=== PATIENT | female | born 1980 | race Caucasian/White ===

== ENCOUNTER 2018-08-10 02:50 | Emergency (ER) | payer OTHER ==
[~2018-08-10] VITALS: Ht 152.4 cm; Wt 90.0 kg
[~2018-08-10 02:50] MED LIST: AZIT250T PO
[2018-08-10] MEDS ORDERED: normal saline 1000ML IV soln IVB ONE (03:00)
--- NOTE | 2018-08-10 03:17 | NUR ---
poison control contacted: for trazodone - watch for sedation, N\V, bradycardia and hypotension and even seizures. For unk muscle relaxers - watch for sedation, seizures. Treat with fluids and if necessary levophed and atropine. Order regular labs plus ASA, APAP, ETOH, Utox.
[2018-08-10 03:20] LABS: URINE HCG NEGATIVE (NEG)
[2018-08-10 03:22] LABS: BASOPHILS % (AUTO) 0.4 % (0-1); EOSINOPHILS # (AUTO) 0.1 X10'3 (0-0.9); EOSINOPHILS % (AUTO) 1.3 % (0-6); HEMATOCRIT 34.6 % (35.0-45.0); HEMOGLOBIN 11.7 g/dl (12.0-16.0); LYMPHOCYTES # (AUTO) 1.6 X10'3 (1.1-4.8); LYMPHOCYTES % (AUTO) 15.9 % (21-51); MEAN CORPUSCULAR HGB CONC 33.8 % (33.0-36.5); MEAN CORPUSCULAR VOLUME 82.7 FL (78-98); MEAN PLATELET VOLUME 6.9 FL (7.4-10.4); MONOCYTES # (AUTO) 0.5 X10'3 (0-0.9); MONOCYTES % (AUTO) 5.3 % (2-12); NEUTROPHILS # (AUTO) 7.8 X10'3 (1.8-7.7); NEUTROPHILS % (AUTO) 77.1 % (42-75); PLATELET COUNT 415 X10'3 (140-440); RED BLOOD COUNT 4.19 X10'6 (4.20-5.60); RED CELL DISTRIBUTION WIDTH 15.5 % (11.5-14.5); WHITE BLOOD COUNT 10.1 X10'3 (4.5-11.0)
[2018-08-10 03:27] LABS: URINE AMPHETAMINE SCREEN NEGATIVE (Neg); URINE BARBITUATE SCREEN NEGATIVE (Neg); URINE BENZODIAZEPINES SCREEN NEGATIVE (Neg); URINE CANNABINOID SCREEN NEGATIVE (Neg); URINE COCAINE SCREEN NEGATIVE (Neg); URINE METHADONE SCREEN NEGATIVE (Neg); URINE OPIATE SCREEN NEGATIVE (Neg); URINE PHENCYCLIDINE SCREEN NEGATIVE (Neg)
[2018-08-10 03:34] LABS: ACETAMINOPHEN < 2.0 UG/ML (10-30); ALANINE AMINOTRANSFERASE 20 U/L (12-78); ALBUMIN 3.3 G/DL (3.4-5.0); ALBUMIN/GLOBULIN RATIO 0.9 (1.1-1.5); ALKALINE PHOSPHATASE 67 IU/L (46-116); ANION GAP 14 (8-16); ASPARTATE AMINO TRANSFERASE 11 U/L (10-37); BILIRUBIN,TOTAL 0.2 MG/DL (0.1-1.0); BLOOD UREA NITROGEN 9 MG/DL (7-18); BUN/CREATININE RATIO 11.7 (6.6-38.0); CALCIUM 7.9 MG/DL (8.5-10.1); CHLORIDE 101 MMOL/L (99-107); CREATININE 0.77 MG/DL (0.40-0.90); ETHANOL < 0.010 GM/DL (0.0-0.010); GLUCOSE 128 MG/DL (70-104); POTASSIUM 3.2 MMOL/L (3.5-5.1); SODIUM 138 MMOL/L (135-145); TOTAL CARBON DIOXIDE 23.2 MMOL/L (24-32); eGFR 83 ML/MIN
[2018-08-10] MEDS: potassium Cl 20 mEq SR tablet PO STA ×2 (05:45→10:54)
--- NOTE | 2018-08-10 06:30 | NUR ---
PT CURRENTLY RESTING QUIETLY, NO SIGNS OF DISTRESS NOTED. WILL GIVE PO POTASSIUM WHEN PT WAKES
--- NOTE | 2018-08-10 07:30 | NUR ---
PT STILL SLEEPING, NO SIGNS OF DISTRESS NOTED. WILL CONT TO MONITOR
--- NOTE | 2018-08-10 08:20 | NUR ---
PT SLEEPING, SHE ROLLED OVER TO HER LEFT SIDE, NO SIGNS OF DISTRESS NOTED
--- NOTE | 2018-08-10 10:21 | NUR ---
ASHLEY FROM POISON CONTROL CALLED TO F/U WITH PT. LAB VALUES GIVEN. PT CONT TO SLEEP. WILL CONT TO MONITOR
--- NOTE | 2018-08-10 11:23 | NUR ---
assited head to toe clean up: patient incontinent of urine. patient responsive to sternal rub, pupils 4 mm sluggish but reactive, patient with gag reflex when orally suctioned with yankauer when patient was flat while turning patient was foaming at the mouth: dr cesar informed patient on ekg, bp spo2 monitoring
[2018-08-10] MEDS ORDERED: DIVA-74 PO (12:17)
[2018-08-10] MEDS ORDERED: TRAZ-218 PO (12:17)
[2018-08-10] MEDS ORDERED: OMEP40CA37 PO (12:17)
[2018-08-10] MEDS ORDERED: CITA-278 PO (12:17)
--- NOTE | 2018-08-10 16:09 | NUR ---
Contacts: Dominique Kahn [phone] Ryley Patel - [place] [phone]
--- NOTE | 2018-08-10 19:05 | NUR ---
The patient transferred to bed #21. She was quiet and appears sleepy. She is very disheveled and appears to have greasy unwashed hair. She lay on the bed with her eyes closed and crying throughout the assessment. She reports being depressed and suicidal for the past month. She states that she and her girlfriend have been fighting. She stated that she does want to live for her kids ages 5 and 18months who she states are currently with their mother. She denies being psychotic. She reports a very poor appetite and had an approximately 12lb weight loss in the past month. She reported saw an MD and has an appointment with a psychiatrist this next week but she is unable to state who her MD is or what clinic she has been going too. Patient given hygiene supplies. She was made aware of the current plan of care.
--- NOTE | 2018-08-11 00:18 | NUR ---
The patient appears to be sleeping. She was up briefly up to use the bathroom. She ambulated to the bathroom without difficulty but still appears tired from overdose
--- NOTE | 2018-08-11 02:59 | NUR ---
The patient appears to be sleeping well and periodically changing her position in bed.
--- NOTE | 2018-08-11 05:16 | NUR ---
The patient awakened and asked about her condition and asked if she could have etc. She was made aware of the plan of care and that [facility] would be assessing her later on today.
[2018-08-11 05:42] VITALS: BP 137/90
--- NOTE | 2018-08-11 07:04 | NUR ---
Patient sleeping supine. No distress observed. About 30 minutes ago patient sat up and asked when she was getting breakfast. RN advised patient that breakfast comes at around 0800. Pt verbalized understanding. Continue to monitor.
--- NOTE | 2018-08-11 07:15 | NUR ---
Patient awoke and asked if she had people calling about her. 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 Patient stated she doesn't want Dominique to visit with her speaking to her on the phone first (Dominique is her ex-girlfriend). RN verbalized understanding.
[2018-08-11] MEDS ORDERED: potassium Cl 20 mEq SR tablet PO ONE (08:50)
--- NOTE | 2018-08-11 09:25 | NUR ---
Patient with emesis and threw up her K-Dur. RN to get order for zofran and give K-Dur a little later so pt has time to settle her stomach down. Continue to monitor.
[2018-08-11] MEDS ORDERED: ondansetron 4mg rapidly disintigrating tab PO ONE (09:45)
--- NOTE | 2018-08-11 09:50 | NUR ---
Patient with girlfriend. No distress observed. continue to monitor.
[2018-08-11] MEDS ORDERED: pantoprazole 40mg Tablet.DR PO SCH (09:51)
[2018-08-11] MEDS ORDERED: divalproex sodium 250mg tablet PO SCH (09:52)
[2018-08-11] MEDS ORDERED: citalopram 20mg tablet PO SCH (09:52)
--- NOTE | 2018-08-11 11:40 | NUR ---
Patient sleeping supine. No distress observed. Continue to monitor.
--- NOTE | 2018-08-11 12:55 | NUR ---
Telephone call from Marina at this time, addressed all questions and concerns with [facility], stated they have a bed available and will be calling back after going through patient's information with the MD.
[2018-08-11] MEDS ORDERED: potassium Cl 20 mEq SR tablet PO SCH (13:00)
--- NOTE | 2018-08-11 13:15 | NUR ---
Telephone call received at this time from Yuko at the [facility] office, patient has been accepted to [facility] with Dr Livingston, unit #[id number], leaf size picker time 2:20pm.
[2018-08-11] MEDS ORDERED: acetaminophen 325mg tablet PO ONE (13:20)
[2018-08-11] MEDS ORDERED: traZODone 50mg tablet PO SCH (21:00)
== END 2018-08-11 15:02 ==
LOC: ER 02:51
DX: T43.212A Poisoning by selective serotonin and norepinephrine reuptake inhibitors, intentional self-harm, initial encounter (principal); F31.9 Bipolar disorder, unspecified; Z88.0 Allergy status to penicillin; Z79.899 Other long term (current) drug therapy; Y92.89 Other specified places as the place of occurrence of the external cause
CPT/HCPCS: 36415; 80053; 80305; 80320; 80329; 81025; 84443; 85025; 93005; 99285; J7030

== ENCOUNTER 2022-02-23 01:01 | Emergency (ER) | payer BC, OTHER ==
[~2022-02-23] VITALS: Ht 152.4 cm; Wt 72.7 kg
[~2022-02-23 01:01] MED LIST changes: -AZIT250T PO; +CITA20TA28 PO; +DIVA-74 PO; +OMEP40CA21 PO; +TRAZ-251 PO
[2022-02-23 01:26] VITALS: BP 141/86
[2022-02-23 01:49] LABS: BASOPHILS # (AUTO) 0.1 X10'3 (0-0.2); BASOPHILS % (AUTO) 0.8 % (0-1); EOSINOPHILS % (AUTO) 0.2 % (0-6); HEMATOCRIT 36.8 % (35.0-45.0); HEMOGLOBIN 12.7 g/dl (12.0-16.0); LYMPHOCYTES # (AUTO) 2.7 X10'3 (1.1-4.8); LYMPHOCYTES % (AUTO) 27.1 % (21-51); MEAN CORPUSCULAR HEMOGLOBIN 29.4 PG (27.0-31.0); MEAN CORPUSCULAR HGB CONC 34.5 g/dL (33.0-36.5); MEAN CORPUSCULAR VOLUME 85.3 FL (78-98); MEAN PLATELET VOLUME 7.5 FL (7.4-10.4); MONOCYTES # (AUTO) 0.6 X10'3 (0-0.9); NEUTROPHILS # (AUTO) 6.6 X10'3 (1.8-7.7); NEUTROPHILS % (AUTO) 65.9 % (42-75); PLATELET COUNT 444 X10'3 (140-440); RED BLOOD COUNT 4.32 X10'6 (4.20-5.60); RED CELL DISTRIBUTION WIDTH 16.7 % (11.5-14.5); WHITE BLOOD COUNT 10.1 X10'3 (4.5-11.0)
[2022-02-23 02:04] LABS: ALANINE AMINOTRANSFERASE 15 U/L (12-78); ALBUMIN 3.6 G/DL (3.4-5.0); ALBUMIN/GLOBULIN RATIO 0.9 (1.1-1.5); ALKALINE PHOSPHATASE 66 IU/L (46-116); ANION GAP 11 (8-16); ASPARTATE AMINO TRANSFERASE 10 U/L (10-37); BILIRUBIN,TOTAL 0.4 MG/DL (0.1-1.0); BLOOD UREA NITROGEN 7 MG/DL (7-18); BUN/CREATININE RATIO 8.8 (6.6-38.0); CALCIUM 8.9 MG/DL (8.5-10.1); CHLORIDE 103 MMOL/L (99-107); GLUCOSE 114 MG/DL (70-104); POTASSIUM 3.2 MMOL/L (3.5-5.1); SODIUM 141 MMOL/L (135-145); TOTAL CARBON DIOXIDE 27.5 MMOL/L (24-32); TOTAL PROTEIN 7.4 G/DL (6.4-8.2); eGFR 79 ML/MIN
[2022-02-23] MEDS ORDERED: pantoprazole 40 MG vial IV ONE (02:35)
[2022-02-23] MEDS ORDERED: pantoprazole 40MG/NS 100ML BAG 100 ML IV ONE (02:35)
== END 2022-02-23 03:08 | disposition home or self-care (01) ==
LOC: ER 01:02
DX: R07.9 Chest pain, unspecified (principal); F31.9 Bipolar disorder, unspecified; F17.200 Nicotine dependence, unspecified, uncomplicated; Z88.0 Allergy status to penicillin; Z79.899 Other long term (current) drug therapy
CPT/HCPCS: 36415; 71045; 80053; 83880; 84484; 85025; 93005; 96374; 99285; C9113

== ENCOUNTER 2022-06-16 20:14 | Emergency (ER) | payer BC ==
[~2022-06-16] VITALS: Ht 149.9 cm; Wt 70.5 kg
[2022-06-16 20:18] VITALS: BP 132/92
--- NOTE | 2022-06-16 20:23 | NUR ---
Developing a "slight headache" pt states.
== END 2022-06-16 20:49 | disposition home or self-care (01) ==
LOC: ER 20:15
DX: R04.0 Epistaxis (principal); F31.9 Bipolar disorder, unspecified; V87.7XXA Person injured in collision between other specified motor vehicles (traffic), initial encounter; Y93.89 Activity, other specified; Y92.89 Other specified places as the place of occurrence of the external cause; Y99.8 Other external cause status
CPT/HCPCS: 99283

== ENCOUNTER 2022-06-23 09:23 | Emergency (ER) | payer BC ==
[~2022-06-23] VITALS: Ht 149.9 cm; Wt 63.6 kg
[2022-06-23 15:16] VITALS: BP 125/75
== END 2022-06-23 15:18 | disposition home or self-care (01) ==
LOC: ER 09:23
DX: R07.89 Other chest pain (principal); R51.9 Headache, unspecified; F31.9 Bipolar disorder, unspecified; F14.90 Cocaine use, unspecified, uncomplicated; Z88.0 Allergy status to penicillin; Z79.899 Other long term (current) drug therapy; V87.7XXD Person injured in collision between other specified motor vehicles (traffic), subsequent encounter
CPT/HCPCS: 71046; 99283